=== PATIENT | female | born 1995 | race Caucasian/White ===

== ENCOUNTER 2021-10-05 12:45 | Emergency (ER) | payer MEDICAID ==
[~2021-10-05] VITALS: Ht 154.9 cm; Wt 72.6 kg
[2021-10-05 12:53] VITALS: BP_SYST 129
--- NOTE | 2021-10-05 12:59 | NUR ---
Patient to ER bed 7 to gown for evaluation. Side rails up. Assumed care.
--- NOTE | 2021-10-05 13:05 | NUR ---
Pt. came in with concerns of vagianl bleeding after sex, had picture of blood that she took with use of cell phone, was small in amount, bright red, denies pain, denies issues with voiding, states has never occured before with sex, no concerns regading abuse or trauma
--- NOTE | 2021-10-05 13:34 | NUR ---
ER at bedside examining patient.
[2021-10-05 13:52] LABS: BASOPHILS % (AUTO) 0.4 % (0.0-2.0); EOSINOPHILS # (AUTO) 0.2 K/uL (0.0-0.4); EOSINOPHILS % (AUTO) 2.3 % (0.0-4.0); HEMATOCRIT 36.6 % (36-48); HEMOGLOBIN 12.1 g/dL (12.0-16.0); LYMPHOCYTES # (AUTO) 1.5 K/uL (1.0-5.5); LYMPHOCYTES % (AUTO) 17.7 % (20.5-51.5); MEAN CORPUSCULAR HEMOGLOBIN 27 pg (27-31); MEAN CORPUSCULAR HGB CONC 33 % (32-36); MEAN CORPUSCULAR VOLUME 80 fL (79.0-98.0); MONOCYTES # (AUTO) 0.5 K/uL (0.0-1.0); MONOCYTES % (AUTO) 6.2 % (1.7-9.3); NEUTROPHILS # (AUTO) 6.4 K/uL (1.8-7.7); NEUTROPHILS % (AUTO) 73.4 % (40.0-70.0); PLATELET COUNT (AUTO) 119 K/uL (130-430); RED BLOOD CELL COUNT(AUTO) 4.56 MIL/uL (4.2-6.2); RED CELL DISTRIBUTION WIDTH 14.9 % (9.0-15.0); WHITE BLOOD COUNT (AUTO) 8.7 K/uL (4.8-10.8)
[2021-10-05 14:08] LABS: PROTHROMBIN TIME 9.9 SECS (9.5-12.5)
--- NOTE | 2021-10-05 14:19 | NUR ---
Assumed care from Naheed SAINI. Urine walked over to lab. Pt aware of plan of care.
[2021-10-05 14:21] LABS: BILIRUBIN,URINE NEGATIVE (NEGATIVE); BLOOD, URINE 2+ (NEGATIVE); COLOR,URINE YELLOW (YELLOW); GLUCOSE,URINE NEGATIVE (NEGATIVE); KETONES,URINE NEGATIVE (NEGATIVE); LEUKOCYTE ESTERASE ,URINE 1+ (NEGATIVE); NITRITE, URINE NEGATIVE (NEGATIVE); PH,URINE 5.5 (5.0-8.0); PROTEIN URINE NEGATIVE (NEGATIVE); UROBILINOGEN,URINE 0.2 (0.2-1.0)
[2021-10-05 14:26] LABS: CLARITY/URINE HAZY (CLEAR)
[2021-10-05 15:02] LABS: BACTERIA,URINE FEW /HPF (None Seen)
[2021-10-05 15:09] VITALS: BP_SYST 122
--- NOTE | 2021-10-05 15:12 | NUR ---
Patient given written and verbal discharge instructions and verbalizes understanding. ER MD discussed with patient the results and treatment provided. Patient in stable condition. ID arm band removed. Patient educated on pain management and to follow up with PMD. Pain Scale 0/10. Opportunity for questions provided and answered. Medication side effect fact sheet provided.
== END 2021-10-05 15:09 | disposition home or self-care (01) ==
LOC: SED 12:45
DX: N93.9 Abnormal uterine and vaginal bleeding, unspecified (principal)
CPT/HCPCS: 36415; 81000; 81025; 84702; 85025; 85610-TC; 85730-TC; 87086; 99283